=== PATIENT | female | born 1945 | race Caucasian/White ===

== ENCOUNTER 2020-03-02 18:31 | Observation (INO) ==
[2020-03-02] MEDS ORDERED: *HR* FentaNYL (PF) 100 MCG/2 ML VIAL IVP ONE (18:49)
[2020-03-02 19:29] LABS: Basophils # 0.1 K/mcL (0.0-0.2); Basophils % 0.4 %; Eosinophils % 0.2 %; Hemoglobin 12.8 g/dL (11.5-15.4); Immature Granulocytes % 0.6 % (0-4); Lymphocytes # 1.6 K/mcL (0.6-4.6); Lymphocytes % 8.3 %; Mean Corpuscular Hemoglobin 29.8 pg (28.0-33.3); Mean Platelet Volume 12.1 fL (9.4-12.4); Monocytes # 0.8 K/mcL (0.0-1.3); Monocytes % 4.3 %; Neutrophils # 16.7 K/mcL (1.6-8.9); Platelet Count 208 K/mcL (140-400); Red Cell Distribution Width 12.7 % (11.5-14.5); Segmented Neutrophils % 86.2 %; White Blood Count 19.4 K/mcL (4.3-11.1)
[2020-03-02 19:35] LABS: Prothrombin Time 11.5 Seconds (9.4-12.1)
[2020-03-02 19:37] LABS: Activated Partial Thrombo Time 27.4 Seconds (26.0-36.0)
[2020-03-02] MEDS ORDERED: Morphine Sulfate 2 MG/ML SYRINGE IVP ONE (19:45)
[2020-03-02 19:49] LABS: Potassium 5.1 mEq/L (3.5-5.1)
[2020-03-02] MEDS ORDERED: Naloxone 0.4 MG/ML INJ IVP PRN ×2 (23:45→23:47)
[2020-03-02] MEDS ORDERED: 0.9 % Sodium Chloride 1,000 ML IVC SCH (23:45)
[2020-03-02] MEDS ORDERED: Dextrose Gel 15 GM/37.5 ML TUBE PO PRN ×2 (23:52)
[2020-03-02] MEDS ORDERED: *HR* Dextrose 50 % in Water (Syg) 50 ML SYRINGE IVP PRN (23:52)
[2020-03-02] MEDS ORDERED: D5% in Water 1,000 ML IVC PRN (23:52)
[2020-03-03] MEDS: Insulin LISPRO 300 UNITS/3 ML VIAL SQ SCH ×4 (00:18→17:25)
[2020-03-03 03:22] LABS: Basophils % 0.2 %; Eosinophils % 0.1 %; Hematocrit 37.1 % (35.3-44.9); Immature Granulocytes % 0.5 % (0-4); Lymphocytes # 1.2 K/mcL (0.6-4.6); Lymphocytes % 7.1 %; Mean Corpuscular HGB Conc 32.3 g/dL (31.6-35.5); Mean Corpuscular Hemoglobin 29.5 pg (28.0-33.3); Mean Corpuscular Volume 91.2 fL (83.0-100.0); Mean Platelet Volume 11.8 fL (9.4-12.4); Monocytes # 0.9 K/mcL (0.0-1.3); Monocytes % 5.4 %; Neutrophils # 14.3 K/mcL (1.6-8.9); Platelet Count 296 K/mcL (140-400); Red Blood Count 4.07 M/mcL (3.82-4.97); Red Cell Distribution Width 12.7 % (11.5-14.5); Segmented Neutrophils % 86.7 %; White Blood Count 16.5 K/mcL (4.3-11.1)
[2020-03-03 03:23] LABS: Bilirubin,Urine Negative (Negative); Blood,Urine Negative (Negative); Clarity,Urine Cloudy (Clear); Color,Urine Yellow (Yellow); Glucose,Urine (UA) >=1000 mg/dL (Normal); Ketones,Urine Trace mg/dL (Negative); Leukocyte Esterase,Urine Moderate (Negative); Nitrite,Urine Negative (Negative); PH,Urine 5.5 pH Units (5.0-8.0); Protein,Urine Negative (Neg-Trace); Specific Gravity,Urine 1.026 (1.010-1.025); Urobilinogen,Urine Normal (Normal)
[2020-03-03 03:25] LABS: Bacteria,Urine Moderate per hpf (None-Few); Hyaline Casts,Urine None Seen per lpf (None-Few); Squamous Epithelial Cell,Urine Many per lpf (None-Few); WBC,Urine 30-50 per hpf (0-3)
[2020-03-03 03:49] LABS: Albumin 3.9 g/dL (3.5-5.7); Albumin/Globulin Ratio 1.3 (1.1-2.2); Bilirubin,Total 0.5 mg/dL (0.3-1.0); Calcium 9.5 mg/dL (8.6-10.3); Globulin 3.1 g/dL (2.4-3.5); Magnesium 2.1 mg/dL (1.6-2.6); Phosphorous 3.9 mg/dL (2.7-4.5); Potassium 5.1 mEq/L (3.5-5.1); Troponin I 0.31 ng/mL (< 0.04)
[2020-03-03] MEDS ORDERED: *HR* Heparin 5,000 UNIT/ML VIAL IVP PRN ×2 (03:53)
[2020-03-03] MEDS ORDERED: *HR* Heparin 5,000 UNIT/ML VIAL IVP ONE (03:53)
[2020-03-03] MEDS ORDERED: Heparin 25,000 UNIT/250 ML D5W 25,000 UNIT/250 ML IV.SOLN IVC SCH (04:00)
[2020-03-03 08:28] LABS: Estimated Average Glucose 160 mg/dl
[2020-03-03] MEDS ORDERED: levoFLOXacin 750 MG/150 ML 750 MG/150 ML BAG IVPB SCH (09:00)
[2020-03-03] MEDS ORDERED: 0.9 % Sodium Chloride 1,000 ML IVC SCH (14:45)
[2020-03-03 15:48] LABS: Hematocrit 35.3 % (35.3-44.9); Hemoglobin 11.4 g/dL (11.5-15.4)
[2020-03-03] MEDS: *HR* Heparin 5,000 UNIT/ML VIAL SQ SCH (17:24)
[2020-03-03] MEDS: carvediloL 6.25 MG TABLET PO SCH (17:26)
[2020-03-03] MEDS ORDERED: *HR* Heparin 5,000 UNIT/ML VIAL SQ SCH (23:47)
[2020-03-04] MEDS: *HR* Heparin 5,000 UNIT/ML VIAL SQ SCH ×2 (00:34→16:37)
[2020-03-04] MEDS: Insulin LISPRO 300 UNITS/3 ML VIAL SQ SCH ×5 (00:51→21:46)
[2020-03-04] MEDS: carvediloL 6.25 MG TABLET PO SCH ×2 (07:25→16:37)
[2020-03-04] MEDS ORDERED: Famotidine 20 MG/2 ML VIAL IVP ONE (07:30)
[2020-03-04] MEDS ORDERED: Scopolamine Patch 1.5 MG PATCH.TD72 TD ONE (07:30)
[2020-03-04] MEDS ORDERED: Aspirin 81 MG TAB.CHEW PO SCH (09:00)
[2020-03-04 09:50] LABS: Basophils % 0.3 %; Eosinophils # 0.1 K/mcL (0.0-0.6); Eosinophils % 1.4 %; Hematocrit 31.8 % (35.3-44.9); Immature Granulocytes % 0.2 % (0-4); Lymphocytes % 23.2 %; Mean Corpuscular HGB Conc 30.8 g/dL (31.6-35.5); Mean Corpuscular Hemoglobin 29.2 pg (28.0-33.3); Mean Corpuscular Volume 94.6 fL (83.0-100.0); Mean Platelet Volume 12.1 fL (9.4-12.4); Monocytes # 0.8 K/mcL (0.0-1.3); Monocytes % 9.4 %; Neutrophils # 5.7 K/mcL (1.6-8.9); Platelet Count 229 K/mcL (140-400); Red Blood Count 3.36 M/mcL (3.82-4.97); Red Cell Distribution Width 12.9 % (11.5-14.5); Segmented Neutrophils % 65.5 %; White Blood Count 8.6 K/mcL (4.3-11.1)
[2020-03-04 09:54] LABS: Hemoglobin 9.8 g/dL (11.5-15.4)
[2020-03-04 10:07] LABS: Calcium 9.2 mg/dL (8.6-10.3); Magnesium 1.8 mg/dL (1.6-2.6); Potassium 4.6 mEq/L (3.5-5.1)
[2020-03-04] MEDS ORDERED: Ropivacaine/PF 0.5% 30 ML VIAL ONE (11:24)
[2020-03-04] MEDS ORDERED: ROPIVACAINE/PF/NS 0.25% 1 EACH SYRINGE INTRAART ONE (11:24)
[2020-03-04] MEDS ORDERED: *HR* Propofol 200 MG/20 ML VIAL IVP ONE (11:31)
[2020-03-04] MEDS ORDERED: *HR* FentaNYL (PF) 100 MCG/2 ML VIAL ONE (11:31)
[2020-03-04] MEDS ORDERED: Dexamethasone 4 MG/ML VIAL ONE (11:32)
[2020-03-04] MEDS ORDERED: *HR* Rocuronium Bromide 50 MG/5 ML VIAL ONE ×2 (11:32→12:26)
[2020-03-04] MEDS ORDERED: *HR* Midazolam HCl 2 MG/2 ML VIAL ONE (11:32)
[2020-03-04] MEDS ORDERED: Ondansetron 4 MG/2 ML VIAL ONE (11:32)
[2020-03-04] MEDS ORDERED: Lidocaine -MPF 2% 2 ML VIAL ONE (11:32)
[2020-03-04] MEDS ORDERED: *HR* Succinylcholine 200 MG/10 ML VIAL IVP ONE ×2 (11:32→12:26)
[2020-03-04] MEDS ORDERED: Ethanol\\Acetic Acid\\Na Ace\\Ben 1,000 ML IRRIG.SOLN IR ONE (12:34)
[2020-03-04] MEDS ORDERED: Clindamycin 600 MG/50 ML 600 MG/50 ML IV.SOLN IVPB ONE ×2 (12:47→23:00)
[2020-03-04] MEDS ORDERED: Clindamycin 900 MG/50 ML 900 MG/50 ML IV.SOLN IVPB ONE (12:48)
[2020-03-04] MEDS ORDERED: EPHEDrine 50 MG/ML VIAL ONE (12:58)
[2020-03-04] MEDS ORDERED: *HR* Vasopressin 20 UNIT/ML VIAL ONE (13:11)
[2020-03-04] MEDS ORDERED: *HR* Dextrose 50 % in Water (Syg) 50 ML SYRINGE IVP PRN ×2 (14:40→16:24)
[2020-03-04] MEDS ORDERED: Sennosides 8.6 MG TABLET PO PRN (14:40)
[2020-03-04] MEDS ORDERED: MOM Conc 10 ML UD.LIQ PO PRN (14:40)
[2020-03-04] MEDS ORDERED: Ondansetron 4 MG/2 ML VIAL IVP PRN (14:40)
[2020-03-04] MEDS ORDERED: Dextrose Gel 15 GM/37.5 ML TUBE PO PRN ×4 (14:40→16:24)
[2020-03-04] MEDS ORDERED: Ringers Solution, Lactated 1,000 ML IVC SCH (14:40)
[2020-03-04] MEDS ORDERED: D5% in Water 1,000 ML IVC PRN ×2 (14:40→16:24)
[2020-03-04 14:43] LABS: Hematocrit 29.4 % (35.3-44.9); Hemoglobin 9.4 g/dL (11.5-15.4)
[2020-03-04] MEDS ORDERED: ceFAZolin 2,000 MG in 0.9 % Sodium Chloride 100 ML IVPB SCH (16:00)
[2020-03-04] MEDS ORDERED: Insulin LISPRO 300 UNITS/3 ML VIAL SQ SCH (18:00)
[2020-03-05] MEDS ORDERED: Clindamycin 600 MG/50 ML 600 MG/50 ML IV.SOLN IVPB ONE ×2 (01:00→09:30)
[2020-03-05 01:59] LABS: Red Cell Distribution Width 12.9 % (11.5-14.5)
[2020-03-05 02:00] LABS: Basophils % 0.1 %
[2020-03-05 02:01] LABS: Hematocrit 29.6 % (35.3-44.9); Hemoglobin 9.4 g/dL (11.5-15.4); Immature Granulocytes % 0.4 % (0-4); Immature Platelets 10.8 % (1.1-6.1); Lymphocytes # 0.8 K/mcL (0.6-4.6); Lymphocytes % 8.5 %; Mean Corpuscular HGB Conc 31.8 g/dL (31.6-35.5); Mean Corpuscular Hemoglobin 30.1 pg (28.0-33.3); Mean Corpuscular Volume 94.9 fL (83.0-100.0); Mean Platelet Volume 13.7 fL (9.4-12.4); Monocytes # 0.2 K/mcL (0.0-1.3); Monocytes % 2.4 %; Neutrophils # 7.9 K/mcL (1.6-8.9); Platelet Count 172 K/mcL (140-400); Red Blood Count 3.12 M/mcL (3.82-4.97); Segmented Neutrophils % 88.6 %; White Blood Count 8.9 K/mcL (4.3-11.1)
[2020-03-05 02:09] LABS: Calcium 8.7 mg/dL (8.6-10.3); Magnesium 1.8 mg/dL (1.6-2.6); Phosphorous 3.1 mg/dL (2.7-4.5); Potassium 5.4 mEq/L (3.5-5.1)
[2020-03-05] MEDS: *HR* Heparin 5,000 UNIT/ML VIAL SQ SCH ×2 (06:18→17:25)
[2020-03-05] MEDS ORDERED: 0.9 % Sodium Chloride 1,000 ML IVC SCH (07:45)
[2020-03-05] MEDS ORDERED: levoFLOXacin 750 MG/150 ML 750 MG/150 ML BAG IVPB SCH (09:00)
[2020-03-05] MEDS: carvediloL 6.25 MG TABLET PO SCH ×2 (09:23→17:25)
[2020-03-05] MEDS: Aspirin 81 MG TAB.CHEW PO SCH (09:25)
[2020-03-05] MEDS: Insulin LISPRO 300 UNITS/3 ML VIAL SQ SCH ×4 (09:47→21:50)
[2020-03-05] MEDS ORDERED: Insulin DETEMIR 100 UNIT/ML X5UNITS SQ SCH (21:00)
[2020-03-06 01:49] LABS: Hematocrit 30.1 % (35.3-44.9); Hemoglobin 9.4 g/dL (11.5-15.4)
[2020-03-06 02:11] LABS: Calcium 9.2 mg/dL (8.6-10.3); Potassium 4.7 mEq/L (3.5-5.1)
[2020-03-06] MEDS: *HR* Heparin 5,000 UNIT/ML VIAL SQ SCH (05:16)
[2020-03-06] MEDS: Aspirin 81 MG TAB.CHEW PO SCH (08:00)
[2020-03-06] MEDS: carvediloL 6.25 MG TABLET PO SCH (08:00)
[2020-03-06] MEDS: Insulin LISPRO 300 UNITS/3 ML VIAL SQ SCH (08:00)
[2020-03-06 11:19] VITALS: BP 139/77
== END 2020-03-06 11:37 | disposition home health service (06) ==
LOC: 3NENU 18:31 → EMEROOARM 18:31 → SUATTDRO 21:19 → 3NENU 21:37
PROVIDERS: ADMIT Family Medicine; ATTEND Internal Medicine